=== PATIENT | male | born 2000 | race Two or more races ===

== ENCOUNTER 2019-07-12 05:15 | Emergency (ER) | payer SELFPAY ==
[~2019-07-12] VITALS: Ht 170.2 cm; Wt 77.1 kg
[2019-07-12 05:23] VITALS: BP 149/97
== END 2019-07-12 06:05 | disposition left against medical advice (07) ==
LOC: ER 05:15
DX: F15.129 Other stimulant abuse with intoxication, unspecified (principal); Z53.21 Procedure and treatment not carried out due to patient leaving prior to being seen by health care provider